=== PATIENT | female | born 2000 | race Two or more races ===

== ENCOUNTER 2023-02-24 13:50 | Emergency (ER) | payer OTHER ==
[~2023-02-24] VITALS: Ht 154.9 cm; Wt 49.4 kg
== END 2023-02-24 16:58 | disposition home or self-care (01) ==
LOC: ER 13:51
DX: K30 Functional dyspepsia (principal)

== ENCOUNTER 2023-05-13 16:41 | Emergency (ER) | payer OTHER ==
[~2023-05-13] VITALS: Ht 154.9 cm; Wt 52.2 kg
[2023-05-13] MEDS ORDERED: FAMOTIDINE/PF 20 MG/2 ML VIAL IV PUSH ONE (17:30)
[2023-05-13] MEDS ORDERED: ACETAMINOPHEN 500 MG GEL..CAP PO ONE (17:30)
[2023-05-13] MEDS ORDERED: HYOSCYAMINE SULFATE 0.125 MG TAB.SUBL SL ONE (17:30)
[2023-05-13 18:01] LABS: MEAN CORPUSCULAR HEMOGLOBIN 30.6 pg (27.00-32.0); MEAN CORPUSCULAR HGB CONC 34.4 g/dl (32.0-36.0); PLATELET COUNT 263 K/uL (150-450); RED BLOOD COUNT 3.93 M/uL (4.00-6.00)
[2023-05-13 18:25] LABS: ALBUMIN 3.7 gm/dL (3.4-5.0); BILIRUBIN TOTAL 0.81 mg/dL (0.3-1.2); CALCIUM 8.8 mg/dL (8.5-10.1); CREATININE SERUM 0.88 mg/dL (0.55-1.02); GFR 80.35; GLOBULINA 3.5 G/DL (2.4-3.5); POTASSIUM 3.57 mEq/L (3.5-5.1); TOTAL PROTEIN 7.2 gm/dL (6.4-8.2)
[2023-05-13 18:44] LABS: PH,URINE 5.5 (5.0-8.0); URINE APPEARANCE Cloudy; URINE BILIRRUBIN Negative (NEGATIVE); URINE BLOOD Negative; URINE COLOR Yellow; URINE GLUCOSE Negative (NEGATIVE); URINE LEUKOCYTE Trace; URINE NITRATE Negative; URINE PROTEIN Negative (NEGATIVE)
[2023-05-13 18:47] LABS: URINE BACTERIA 2538.8 uL (0.0-1933); URINE EPITHELIAL CELLS 114.3 uL (0.0-38.8); URINE RBC 19.4 uL (0.0-20.8); URINE WBC 68.3 uL (0.0-23.2)
== END 2023-05-13 19:33 | disposition home or self-care (01) ==
LOC: ER 16:41
PROVIDERS: General Practice
DX: B34.9 Viral infection, unspecified (principal); Z20.822 Contact with and (suspected) exposure to COVID-19